=== PATIENT | female | born 1965 | race Caucasian/White ===

== ENCOUNTER 2021-02-08 22:39 | Emergency (ER) | payer OTHER ==
[2021-02-08 22:46] VITALS: BP 123/57; PULSE 68; TEMP 98.9
[2021-02-08] MEDS ORDERED: predniSONE 20 MG TABLET (UD) PO ONE (22:46)
[2021-02-08] MEDS ORDERED: predniSONE 20 MG TABLET (UD) ONE (22:55)
== END 2021-02-08 23:04 | disposition home or self-care (01) ==
LOC: FER 22:39
DX: L23.7 Allergic contact dermatitis due to plants, except food (principal)
CPT/HCPCS: 99283-25